=== PATIENT | female | born 1980 | race Caucasian/White ===

== ENCOUNTER 2016-07-28 19:14 | Emergency (ER) | payer OTHER ==
[~2016-07-28] VITALS: Ht 160 cm; Wt 51.9 kg
[~2016-07-28 19:14] MED LIST: ABILIFY10 MG PO; CELEXA40 MG PO
[2016-07-28 20:09] LABS: HEMATOCRIT 40.4 % (36.0-46.0); MCH 32.9 PG (29.0-34.0); MCHC 34.7 G/DL (30.0-36.0); MCV 95.1 FL (83-99); PLATELET COUNT 203 K/uL (156-360); RBC DIS.WIDTH-CV 12.2 % (11.8-14.6); RBC DIS.WIDTH-SD 42.7 % (39-53); RED BLOOD COUNT 4.25 M/uL (3.80-5.20)
[2016-07-28 20:13] LABS: ADD MIUA? YES; BILIRUBIN NEGATIVE; BLOOD SMALL; COLOR YELLOW ((YELLOW)); GLUCOSE (STRIP) NEGATIVE; KETONES NEGATIVE; LEUKOCYTES TRACE; NITRITE NEGATIVE; PROTEIN (STRIP) NEGATIVE; SPECIFIC GRAVITY 1.018 (1.000-1.030); UROBILINOGEN 0.2 MG/DL (0.2-1.0)
[2016-07-28 20:20] LABS: CHLORIDE 102 mEq/L (99-109); POTASSIUM 3.9 mEq/L (3.7-5.4); SODIUM 138 mEq/L (136-147)
[2016-07-28 20:22] LABS: GLUCOSE 86 mg/dL (70-99)
[2016-07-28 20:24] LABS: ANION GAP 8 MEQ/L (2-14); TOTAL BILIRUBIN 0.5 mg/dL (0.0-1.0)
[2016-07-28 20:26] LABS: ALKALINE PHOSPHATASE 69 IU/L (3-129); GFR ESTIMATE (CALCULATED) > 59 mL/min/
[2016-07-28 20:27] LABS: UREA NITROGEN (BUN) 8 mg/dL (9-23)
[2016-07-28 20:36] LABS: QUANTITATIVE HCG < 4.0 MIU/ML
[2016-07-28 21:14] LABS: BACTERIA RARE /HPF; EPITHELIAL CELLS 1+ /HPF; MUCUS TRACE /LPF; RED BLOOD CELLS 0-5 /HPF (0-5); UCUL ADDED? NO; WHITE BLOOD CELLS 0-5 /HPF (0-5)
[2016-07-28 21:15] LABS: CASTS NONE SEEN /LPF; CRYSTALS NONE SEEN
[2016-07-28 22:52] VITALS: BP 101/77
[2016-07-30 13:24] LABS: CHLAMYDIA TRACHOMATIS NEGATIVE; NEISSERIA GONORRHOEAE NEGATIVE
== END 2016-07-28 22:53 | disposition home or self-care (01) ==
LOC: EXP 19:14 → EME 19:14 → EXP 22:53
PROVIDERS: Physician Assistant
DX: N89.8 Other specified noninflammatory disorders of vagina (principal); Z20.2 Contact with and (suspected) exposure to infections with a predominantly sexual mode of transmission; Z11.3 Encounter for screening for infections with a predominantly sexual mode of transmission; F17.200 Nicotine dependence, unspecified, uncomplicated
CPT/HCPCS: 80053; 81003; 84702; 85027; 87210; 87480; 87491; 87510; 87591; 87660; 99281; 99284; J0696

== ENCOUNTER 2016-11-13 12:58 | Emergency (ER) | payer OTHER ==
[~2016-11-13] VITALS: Ht 160 cm; Wt 50.4 kg
[2016-11-13 16:14] LABS: MCH 32.8 PG (29.0-34.0); MCHC 35.1 G/DL (30.0-36.0); MCV 93.3 FL (83-99); MEAN PLAT.VOLUME 10.8 uM^3 (9.5-12.4); PLATELET COUNT 182 K/uL (156-360); RBC DIS.WIDTH-CV 12.1 % (11.8-14.6); RBC DIS.WIDTH-SD 41.5 % (39-53); RED BLOOD COUNT 4.61 M/uL (3.80-5.20); WHITE BLOOD COUNT 6.8 K/uL (4.1-10.2)
[2016-11-13 16:23] LABS: CHLORIDE 106 mEq/L (99-109); POTASSIUM 4.3 mEq/L (3.7-5.4); SODIUM 138 mEq/L (136-147)
[2016-11-13 16:25] LABS: GLUCOSE 95 mg/dL (70-99)
[2016-11-13 16:26] LABS: ANION GAP 7 MEQ/L (2-14)
[2016-11-13 16:27] LABS: TOTAL BILIRUBIN 0.5 mg/dL (0.0-1.0)
[2016-11-13 16:29] LABS: ALKALINE PHOSPHATASE 51 IU/L (3-129); GFR ESTIMATE (CALCULATED) > 59 mL/min/
[2016-11-13 16:31] LABS: UREA NITROGEN (BUN) 8 mg/dL (9-23)
[2016-11-13 16:35] LABS: TROP-I INTERPRETATION NEGATIVE; TROPONIN-I < 0.01 ng/mL (0.0-0.30)
[2016-11-13 17:07] VITALS: BP 116/89
== END 2016-11-13 17:11 | disposition left against medical advice (07) ==
LOC: RME 12:58 → EME 12:58 → RME 17:11
PROVIDERS: Physician Assistant
DX: R07.9 Chest pain, unspecified (principal); R51 Headache; G47.30 Sleep apnea, unspecified; F17.200 Nicotine dependence, unspecified, uncomplicated
CPT/HCPCS: 70450; 71020; 80053; 84484; 85027; 93005; 99281; 99283

== ENCOUNTER 2017-03-20 16:52 | Emergency (ER) | payer OTHER ==
[~2017-03-20] VITALS: Ht 160 cm; Wt 54.1 kg
[2017-03-20] MEDS ORDERED: PERIDEX473 ML MM (17:57)
[2017-03-20] MEDS ORDERED: PEN-VEE K,VEET500 MG PO (17:57)
[2017-03-20 18:14] VITALS: BP 123/77
== END 2017-03-20 18:17 | disposition home or self-care (01) ==
LOC: EME 16:52
DX: K04.7 Periapical abscess without sinus (principal); K08.89 Other specified disorders of teeth and supporting structures; R22.0 Localized swelling, mass and lump, head; R68.84 Jaw pain; R11.0 Nausea; F17.200 Nicotine dependence, unspecified, uncomplicated
CPT/HCPCS: 99281; 99283

== ENCOUNTER 2017-04-11 18:08 | Emergency (ER) | payer OTHER ==
[~2017-04-11] VITALS: Ht 160 cm; Wt 52.9 kg
[~2017-04-11 18:08] MED LIST changes: +PEN-VEE K,VEET500 MG PO; +PERIDEX473 ML MM
[2017-04-11 22:37] VITALS: BP 110/77
== END 2017-04-11 22:38 | disposition home or self-care (01) ==
LOC: EME 18:08
DX: S06.0X0A Concussion without loss of consciousness, initial encounter (principal); M79.601 Pain in right arm; W20.8XXA Other cause of strike by thrown, projected or falling object, initial encounter; W17.89XA Other fall from one level to another, initial encounter; Y99.0 Civilian activity done for income or pay; F17.200 Nicotine dependence, unspecified, uncomplicated
CPT/HCPCS: 70450; 73140; 99281; 99283